=== PATIENT | male | born 1980 | race American Indian/Alaskan Native ===

== ENCOUNTER → 2017-10-05 18:17 | Emergency (ER) | payer SELFPAY | END | disposition left against medical advice (07) | LOC: ED 18:17 | DX: R11.10 Vomiting, unspecified (principal); Z53.21 Procedure and treatment not carried out due to patient leaving prior to being seen by health care provider ==

== ENCOUNTER 2017-11-18 13:56 | Emergency (ER) | payer SELFPAY | END 2017-11-18 15:56 | disposition left against medical advice (07) | LOC: ED 13:56 | DX: R11.10 Vomiting, unspecified (principal); Z53.21 Procedure and treatment not carried out due to patient leaving prior to being seen by health care provider ==

== ENCOUNTER 2017-12-19 15:23 | Emergency (ER) | payer SELFPAY ==
[2017-12-19] MEDS ORDERED: BOOSTRIX IM ONE (17:13)
--- NOTE | 2017-12-19 17:18 | Emergency Department Report ---
- General Chief Complaint: Laceration/Recheck/Suture Stated Complaint: LIP LAC Time Seen by Provider: 12/19/17 16:52 Source: patient Mode of arrival: Ambulatory Limitations: No Limitations - History of Present Illness Initial Comments: Mr. Neri is a healthy 37 yo male who cut his lip after falling in the bathroom. He struck his mouth of the bath tub. -: Sudden Location: face Place: other Patient Tetanus UTD: No Context: accidental, fall Associated Symptoms: none - Related Data Allergies Allergy/AdvReac Type Severity Reaction Status Date / Time No Known Allergies Allergy Unverified 12/19/17 15:29 ED Review of Systems ROS: Stated complaint: LIP LAC Other details as noted in HPI Constitutional: denies: fever, malaise Cardiovascular: denies: chest pain Neurological: denies: headache, numbness, paresthesias, confusion ED Past Medical Hx - Past Medical History Previous Medical History?: No - Surgical History Past Surgical History?: No - Social History Smoking Status: Current Every Day Smoker Substance Use Type: Alcohol, Marijuana ED Physical Exam - General Limitations: No Limitations General appearance: alert, in no apparent distress - Eye Eye exam: Present: normal appearance - Neck Neck exam: Present: normal inspection. Absent: tenderness, meningismus - Respiratory Respiratory exam: Absent: respiratory distress - Extremities Exam Extremities exam: Present: normal inspection, full ROM - Neurological Exam Neurological exam: Present: alert, oriented X3, other (normal gait) - Other Other exam information: lower left lip laceation: 1.5 cm superficial laceration just 5 mm inferior to geetha border ED Course Vital Signs 12/19/17 15:26 Temperature 98.6 F Pulse Rate 94 H Respiratory 20 Rate Blood Pressure 130/89 O2 Sat by Pulse 98 Oximetry - Laceration /Wound Repair Left Lower Face Wound Location: face Wound's Depth, Shape: superficial Wound Explored: clean Betadine Prep?: No Wound Debrided: minimal Layer Closure?: No Progress: 3 layers of dermabond, good approximation 1.5 cm length ED Medical Decision Making - Medical Decision Making lower lip laceration inferior to vermilion border repaired with dermabond, no other injury due to fall, tdap booster administered in ED Patient and partner both understand wound care instructions Critical care attestation.: If time is entered above; I have spent that time in minutes in the direct care of this critically ill patient, excluding procedure time. ED Disposition Clinical Impression: Lip laceration, Fall Disposition: DC-01 TO HOME OR SELFCARE Is pt being admited?: No Does the pt Need Aspirin: No Condition: Stable Instructions: Skin Adhesive Care (ED) Time of Disposition: 17:18
[2017-12-19 17:28] VITALS: BP 118/68
== END 2017-12-19 17:28 | disposition home or self-care (01) ==
LOC: ED 15:23
DX: S01.511A Laceration without foreign body of lip, initial encounter (principal); F17.200 Nicotine dependence, unspecified, uncomplicated; W18.2XXA Fall in (into) shower or empty bathtub, initial encounter; Y93.89 Activity, other specified; Y92.89 Other specified places as the place of occurrence of the external cause; Y99.8 Other external cause status
CPT/HCPCS: 90471; 90715; 99282